=== PATIENT | female | born 1970 | race Caucasian/White ===

== ENCOUNTER → 2019-07-16 10:22 | Outpatient (CLI) | payer OTHER, SELFPAY ==
[2019-07-16 10:55] LABS: Microscopic, Urine URINE MICROSCOPIC (MICROSCOPIC)
--- NOTE | 2019-07-16 11:02 | US_ITS ---
PROCEDURE: US TRANSVAGINAL CLINICAL INDICATION: ABD PAIN Right lower quadrant pain COMPARISON: No exams were available for comparison FINDINGS: UTERUS: 8.6 x 4.7 x 5.7 cm with a combined endometrial thickness of 3 mm. There is a small area of decreased echogenicity along the fundus posteriorly at 1.1 x 0.7 cm and could be due to small fibroid. LEFT OVARY: 4 x 1.4 cm. Blood flow noted. Small follicles. RIGHT OVARY: 3.5 x 1.7 cm containing small follicles the largest at 16 mm. Blood flow noted. Trace amount of cul-de-sac fluid. IMPRESSION: Bulky somewhat heterogeneous uterus with possible fibroid involvement. Small amount of fluid in the cul-de-sac Dictated by: William Chawla MD 07/16/2019 18:22 Electronically signed by William Chawla MD in [place] 07/16/2019 18:22
[2019-07-16 11:06] LABS: Basophils # 0.1 K/mm3 (0-0.2); Basophils % 0.9 % (0.1-2.0); Eosinophils # 0.2 K/mm3 (0.0-0.4); Eosinophils % 3.6 % (0.1-12.0); Hematocrit 43.2 % (37.0-47.0); Hemoglobin 14.7 g/dL (12.2-16.2); Lymphocytes # 1.8 K/mm3 (0.7-4.5); Lymphocytes % 28.8 % (10-50); Mean Corpuscular Volume 82.5 fl (81-99); Mean Platelet Volume 9.1 fl (7.4-10.4); Monocytes # 0.3 K/mm3 (0.1-1.0); Monocytes % 4.1 % (1.7-9.3); Neutrophils % 62.5 % (37.0-80.0); Platelet Count 210 K/mm3 (142-424); Red Blood Count 5.24 M/mm3 (4.20-5.40); Red Cell Distribution Width 13.4 % (11.5-17.5); White Blood Count 6.4 K/mm3 (4.8-10.8)
[2019-07-16 11:29] LABS: Appearance,Urine CLEAR (Clear); Bilirubin,Urine Negative (Negative); Blood, Urine Negative (Negative); Color,Urine YELLOW (Yellow); Glucose,Urine (UA) Negative (Negative); Ketones,Urine Negative (Negative); Leukocyte Esterase,Urine Negative (Negative); Nitrate,Urine Negative (Negative); PH,Urine 5.5 (5.0-8.5); Protein,Urine Negative (Negative); Urobilinogen,Urine 0.2 EU/dl (0.2)
[2019-07-16 11:41] LABS: RBC,Urine Occasional #/hpf (0-3); WBC,Urine Occasional #/hpf (0-3)
[2019-07-16 11:42] LABS: Bacteria,Urine Trace /lpf
== END ==
PROVIDERS: PCP Emergency Medicine; Visit Provider Emergency Medicine
DX: R10.9 Unspecified abdominal pain (principal)
CPT/HCPCS: 36415; 76830; 81001; 85025

== ENCOUNTER 2021-11-16 18:09 | Emergency (ER) | payer SELFPAY ==
[2021-11-16 18:11] VITALS: BP 123/77; PULSE 73; RESP 19; TEMP 37; O2SAT 99; BMI 23.8
[2021-11-16 18:34] LABS: Basophils # 0.1 K/mm3 (0-0.2); Basophils % 0.6 % (0.1-2.0); Eosinophils # 0.2 K/mm3 (0.0-0.4); Eosinophils % 1.3 % (0.1-12.0); Hematocrit 46.1 % (37.0-47.0); Hemoglobin 15.5 g/dL (12.2-16.2); Lymphocytes # 0.6 K/mm3 (0.7-4.5); Lymphocytes % 5.6 % (10-50); Mean Corpuscular HGB Conc 33.5 g/dL (31.8-35.4); Mean Corpuscular Hemoglobin 26.9 pg (27.0-31.2); Mean Corpuscular Volume 80.3 fl (81-99); Mean Platelet Volume 8.7 fl (7.4-10.4); Monocytes # 0.4 K/mm3 (0.1-1.0); Monocytes % 3.4 % (1.7-9.3); Neutrophils # 10.1 K/mm3 (1.8-7.8); Platelet Count 167 K/mm3 (142-424); Red Blood Count 5.74 M/mm3 (4.20-5.40); Red Cell Distribution Width 14.3 % (11.5-17.5); White Blood Count 11.4 K/mm3 (4.8-10.8)
[2021-11-16 18:35] LABS: MANUAL DIFFERENTIAL MANUAL DIFFERENTIAL (MANUAL DIFF)
[2021-11-16 18:42] LABS: Alanine Aminotransferase 25 U/L (12-78); Albumin Level 4.1 g/dl (3.5-5.0); Albumin/Globulin Ratio 1.5 (1.1-1.8); Alkaline Phosphatase 55 U/L (38-126); Anion Gap 9.2 mEq/L (5-15); Aspartate Amino Transferase 39 U/L (14-36); Blood Urea Nitrogen 15 mg/dl (7-17); Calcium 8.1 mg/dl (8.4-10.2); Carbon Dioxide 23 mmol/L (22.0-30.0); Chloride 106 mmol/L (98-107); Creatinine Clearance Estimated 104 mL/min (50-200); Estimated Glomerular Filt Rate 106 ml/min (>60); GFR (African American) 128 ML/MIN (>60); Globulin 2.8 g/dL (1.3-3.2); Glucose 137 mg/dl (74-100); Potassium 3.2 mmoL/L (3.5-5.1); Sodium 135 mmol/L (136-145); Total Protein,Serum 6.9 g/dl (6.3-8.2)
[2021-11-16 18:42] LABS: Microscopic, Urine URINE MICROSCOPIC (MICROSCOPIC)
--- NOTE | 2021-11-16 18:44 | CT_ITS ---
PROCEDURE INFORMATION: Exam: CT Abdomen And Pelvis With Contrast Exam date and time: 11/16/2021 7:24 PM Age: 51 years old Clinical indication: Abdominal pain; Epigastric; Additional info: Abdominal pain. Epigastric pain since last night with vomiting. TECHNIQUE: Imaging protocol: Computed tomography of the abdomen and pelvis with contrast. Radiation optimization: All CT scans at this facility use at least one of these dose optimization techniques: automated exposure control; mA and/or kV adjustment per patient size (includes targeted exams where dose is matched to clinical indication); or iterative reconstruction. Contrast material: ISOVUE; Contrast volume: 75 ml; Contrast route: IV; COMPARISON: US TRANSVAGINAL 07/16/2019 11:19 AM FINDINGS: Liver: Normal. No mass. Gallbladder and bile ducts: Gallbladder is distended. Pancreas: Normal. No ductal dilation. Spleen: Normal. No splenomegaly. Adrenal glands: Normal. No mass. Kidneys and ureters: Normal. No hydronephrosis. Stomach and bowel: Significant bowel wall thickening of portions of the small bowel and colon. Small amount of free fluid in the pelvis could be related to bowel pathology or could be physiologic. Appendix: No evidence of appendicitis. Intraperitoneal space: Unremarkable. No free air. No significant fluid collection. Vasculature: Unremarkable. No abdominal aortic aneurysm. Lymph nodes: Unremarkable. No enlarged lymph nodes. Urinary bladder: Unremarkable as visualized. Reproductive: 3.3 cm left ovarian cystic lesion is most likely a simple cyst. Bones/joints: Unremarkable. No acute fracture. Soft tissues: Tiny fat containing umbilical hernia. IMPRESSION: Enterocolitis.
[2021-11-16 18:47] LABS: Appearance,Urine CLEAR (Clear); Bilirubin,Urine Negative (Negative); Blood, Urine 3+ (Negative); Color,Urine YELLOW (Yellow); Glucose,Urine (UA) TRACE (Negative); Ketones,Urine Negative (Negative); Leukocyte Esterase,Urine Negative (Negative); Nitrate,Urine Negative (Negative); Protein,Urine Negative (Negative); Specific Gravity, Urine 1.015 (1.005-1.030); Urobilinogen,Urine 0.2 EU/dl (0.2)
[2021-11-16 18:49] LABS: Urine Pregnancy, HCG Qual. Negative (Negative)
--- NOTE | 2021-11-16 18:50 | HMH.EDABDPAI ---
ED Disposition Clinical Impression: Gastritis Qualifiers: Gastritis type: unspecified gastritis Chronicity: acute Gastritis bleeding: without bleeding Qualified Code(s): K29.00 - Acute gastritis without bleeding Disposition: Home, Self-Care Condition on Discharge: Fair Instructions: DI for Acute Abdominal Pain Additional Instructions: Avoid acidic foods until your pain resolves. Please follow up with your primary care physician. Return to the emergency department for any new or concerning symptoms. Prescriptions: Sucralfate [Carafate] 1 gm PO BID #100 ml Transmission Status: Received by [id number] Multivitamin 1 each PO DAILY #30 tab Transmission Status: [facility] Famotidine [Pepcid 20mg Tablet] 20 mg PO DAILY 30 Days #30 tab Transmission Status: [facility] Ondansetron [Zofran 4mg ODT] 4 mg PO BIDP PRN #10 tab PRN Reason: Nausea Transmission Status: [id number] Referrals: Evon Ohara [Primary Care Provider] - - Critical Care Critical Care Time: No Attestation: On 11/16/21, the high probability of a clinically significant, sudden or life threatening deterioration of the following system(s) required my full and direct attention, intervention and personal management. The time I documented below is in addition to time spent performing reported procedures but includes the following listed in this critical care notation. Medical Decision Making - Medical Records Medical records reviewed: Yes: I reviewed the patient's medical records. - Yadiel Inquiry Pt receiving controlled substance: No Vital Signs: 11/16/21 18:11 Temperature 98.6 F Temperature Source Oral Pulse Rate [Right Radial] 73 Respiratory Rate 19 Blood Pressure [Right Arm] 123/77 Blood Pressure Mean [Right Arm] 92 Blood Pressure Source [Right Arm] Automatic Cuff Blood Pressure Position [Right Arm] Sitting 02 Sat by Pulse Oximetry 99 Oxygen Delivery Method Room Air - Lab Data Lab results reviewed: Yes: I reviewed the patient's lab results. Lab Results 11/16/21 18:20: WBC 11.4 H, RBC 5.74 H, Hgb 15.5, Hct 46.1, MCV 80.3 L, MCH 26.9 L, MCHC 33.5, RDW 14.3, Plt Count 167, MPV 8.7, Neut % (Auto) 89.0 H, Lymph % (Auto) 5.6 L, [place] % (Auto) 3.4, Eos % (Auto) 1.3, Baso % (Auto) 0.6, Neut # (Auto) 10.1 H, Lymph # (Auto) 0.6 L, [place] # (Auto) 0.4, Eos # (Auto) 0.2, Baso # (Auto) 0.1, Total Counted 100, Neutrophils % (Manual) 86 H, Band Neutrophils % 1.0, Lymphocytes % (Manual) 8 L, Atypical Lymphs % 2.0, Monocytes % (Manual) 3, Platelet Estimate Normal, Hypochromasia 1+ 11/16/21 18:20: Sodium 135 L, Potassium 3.2 L, Chloride 106, Carbon Dioxide 23, Anion Gap 9.2, BUN 15, Creatinine 0.60, Estimated Creat Clear 104, Estimated GFR 106, Est GFR ( Amer) 128, Glucose 137 H, Calcium 8.1 L, Total Bilirubin 1.0, AST 39 H, ALT 25, Alkaline Phosphatase 55, Total Protein 6.9, Albumin 4.1, Globulin 2.8, Albumin/Globulin Ratio 1.5 11/16/21 18:35: Urine Color Yellow, Urine Appearance Clear, Urine pH 6.0, Ur Specific Perry 1.015, Urine Protein Negative, Urine Glucose (UA) Trace, Urine Ketones Negative, Urine Blood 3+, Urine Nitrate Negative, Urine Bilirubin Negative, Urine Urobilinogen 0.2, Ur Leukocyte Esterase Negative, Urine RBC 10-20, Urine WBC 3-5, Ur Squamous Epith Cells 3-5, Urine Bacteria None 11/16/21 18:35: Urine HCG, Qual Negative Result diagrams: 11/16/21 18:20 11/16/21 18:20 Orders (Tests/Meds): ED MEDICATIONS Generic Name Dose Route Start Last Admin Trade Name Freq PRN Reason Stop Dose Admin Sodium Chloride 10 ml 11/16/21 18:26 Sodium Chloride 0.9% 10ml Flush Syringe IV 12/16/21 18:25 NEEDED PRN Maintain IV Site Discontinued Medications Generic Name Dose Route Start Last Admin Trade Name Freq PRN Reason Stop Dose Admin Belladonna Alkaloids 60 ml 11/16/21 18:44 11/16/21 18:48 Gi Cocktail 60ml Udc PO 11/16/21 18:45 60 ml O
[2021-11-16 19:06] LABS: Hypochromasia 1+; Lymphocytes % 8 % (10-50); Monocytes % 3 % (2-9); Neutrophils % 86 % (42-76); Platelet Estimate Normal; Total Cells Counted 100
[2021-11-16 21:08] VITALS: BP 123/77; PULSE 71; RESP 12; TEMP 37.1; O2SAT 98
== END 2021-11-16 21:12 | disposition home or self-care (01) ==
PROVIDERS: Emergency Provider Emergency Medicine; PCP Family Medicine
DX: K29.00 Acute gastritis without bleeding (principal)
CPT/HCPCS: 74177; 80053; 81001; 81025; 85007; 85025; 96374; 99284; J2405; Q9967

== ENCOUNTER 2024-04-06 13:23 | Emergency (ER) | payer SELFPAY ==
[2024-04-06 13:25] VITALS: BP 154/80; PULSE 83; RESP 16; TEMP 36.9; O2SAT 95; BMI 29.2
--- NOTE | 2024-04-06 14:05 | PC.NURSE ---
DR BURKETT AT BEDSIDE
--- NOTE | 2024-04-06 14:07 | CT_ITS ---
PROCEDURE INFORMATION: Exam: CT Abdomen And Pelvis With Contrast Exam date and time: 04/06/2024 2:39 PM Age: 53 years old Clinical indication: Abdominal pain; Epigastric; Additional info: Epigastric abd pain TECHNIQUE: Imaging protocol: Computed tomography of the abdomen and pelvis with contrast. Radiation optimization: All CT scans at this facility use at least one of these dose optimization techniques: automated exposure control; mA and/or kV adjustment per patient size (includes targeted exams where dose is matched to clinical indication); or iterative reconstruction. Contrast material: ISOVUE; Contrast volume: 75 ml; Contrast route: IV; COMPARISON: CT ABDOMEN PELVIS W CON 11/16/2021 7:24 PM FINDINGS: Liver: 12 mm hyperdense blush in the right lobe of the liver (series 3, image 51. It was not clearly identified in 2021.. Gallbladder and biliary ducts: Normal. No calcified stones. No ductal dilation. Pancreas: Normal. No ductal dilation. Spleen: Normal. No splenomegaly. Adrenal glands: Normal. No mass. Kidneys and ureters: There is no evidence of renal or ureteral calcifications. Stomach and bowel: Unremarkable. No obstruction. No mucosal thickening. Appendix: Normal appendix Intraperitoneal space: Unremarkable. No free air. No significant fluid collection. Vasculature: Unremarkable. No abdominal aortic aneurysm. Lymph nodes: Unremarkable. No enlarged lymph nodes. Urinary bladder: Unremarkable as visualized. Reproductive: Unremarkable as visualized. Bones/joints: Unremarkable. No acute fracture. Soft tissues: Unremarkable. IMPRESSION: 12 mm hyperdense blush in the right lobe of the liver (series 3, image 51. It was not clearly identified in 2021.. Recommend liver MRI if clinically indicated
--- NOTE | 2024-04-06 14:09 | HMH.EDGENADL ---
Discharge Plan Disposition Patient Disposition: Home, Self-Care Condition: Good Prescriptions Prescriptions: No Action multivitamin 1 EACH tablet 1 each PO DAILY Qty: 30 0RF ondansetron 4 MG tablet,disintegrating 4 mg PO BIDP PRN (Reason: Nausea) Qty: 10 0RF sucralfate 1 GM/10 ML suspension 1 gm PO BID Qty: 100 0RF famotidine 20 MG tablet 20 mg PO DAILY 30 Days Qty: 30 0RF Referrals Follow up/Referrals: Miriam Rodriguez MD [Physician] - See instructions Evon Ohara [Primary Care Provider] - See instructions Activity Restrictions/Add. Instructions Additional Instructions/Restrictions: You were evaluated in the emergency department today. Your blood sugar is mildly elevated, and your liver enzymes are also mildly elevated. You also have a very small lesion on your liver, for which we recommend outpatient MRI for further assessment. Your primary care provider can help facilitate this, but we are also providing you with information for gastroenterology, Dr. Rodriguez. Please follow-up with primary care doctor regarding your elevated blood sugar and some of your liver function tests. Return to the emergency department for new or worsening symptoms. Clinical Impressions Clinical Impression: Epigastric abdominal pain, Hyperglycemia, High transaminase levels, Lesion of liver Instructions Patient Instructions: DI for Acute Abdominal Pain Print Language Print Language: Malawian Discharge ED Provider: Jacinta Humphreys General Adult HPI <J Kodak oRth MD - Last Filed: 04/06/24 15:12> General Chief complaint: Abdominal Pain Stated complaint: abd pain Time Seen by Provider: 04/06/24 14:04 Mode of Arrival: Ambulatory Source of Information: Patient Limitations: Language Barrier Description of Symptoms (Recalled from ER Triage Doc. by RN): Patient reports upper abdomen pain that started yesterday. Denies N/V/D. History of Present Illness HPI narrative: Patient is a 53-year-old female who presents today with epigastric abdominal pain. There is a language barrier and her son who is with her is primarily interpreting for the patient. They did not ask for request a management development specialist. She states that for the last several days that she has had epigastric abdominal discomfort that initially started off mild but now is severe. No chest pain exertional symptoms nausea vomiting diarrhea blood in her stool no history of any significant abdominal surgeries. No postprandial aspect of this. Related Data Previous Rx's ?Medication ?Instructions ?Recorded famotidine 20 mg tablet 20 mg PO DAILY 30 days #30 tabs 11/16/21 multivitamin 1 each PO DAILY #30 tabs 11/16/21 ondansetron 4 mg disintegrating 4 mg PO BIDP PRN Nausea #10 tabs 11/16/21 tablet sucralfate 100 mg/mL oral 1 gm PO BID #100 mL 11/16/21 suspension Allergies Allergy/AdvReac Type Severity Reaction Status Date / Time No Known Allergies Allergy Verified 11/16/21 18:25 PFS <Jaylin Roth MD - Last Filed: 04/06/24 15:12> [facility] Disclaimer: The information contained in this section may have been updated after the patient was seen, as this information can be updated by other users. Social History (Updated 04/06/24 @ 15:12 by Jaylin Roth MD) Smoking Status: Never smoker alcohol intake: never current occupational status: other Travel in the last 8 weeks: None <Jaylin Roth MD - Last Filed: 04/06/24 15:12> ROS Obtained: Yes All systems reviewed & no additional complaints except as documented Physical Exam <Jaylin Roth MD - Last Filed: 04/06/24 15:12> General General appearance: alert and in no apparent distress Respiratory Respiratory exam: Present normal lung sounds bilaterally Cardiovascular Cardiovascular exam: Present regular rate Abdominal Exam Abdominal exam: Present soft and tenderness (Epigastric tenderness to palpation); Absent distention Neurological Exam Neurological exam: Present alert and oriented X3 Medical Decision Making <Jaylin Roth MD - Last Filed: 04/06/24 15:12> Yadiel Inquiry Pt receiving controlled substance: No Vital Signs: 04/06/24 13:25 04/06/24 16:03 Temperature 98.5 F 98.5 F Temperature Source Oral Oral Pulse Rate 85 Pulse Rate [Radial] 83 Respiratory Rate 16 16 Blood Pressure 150/72 H Blood Pressure [Right Arm] 154/80 H Blood Pressure Mean [Right Arm] 104 Blood Pressure Source Automatic Cuff Blood Pressure Source [Right Arm] Automatic Cuff Blood Pressure Position Sitting Blood Pressure Position [Right Arm] Sitting 02 Sat by Pulse Oximetry 95 Oxygen Delivery Method Room Air Room Air Lab Data Lab results reviewed: Yes I reviewed the patient's lab results. Lab Results 04/06/24 13:39: WBC 8.2, RBC 4.97, Hgb 13.4, Hct 40.9, MCV 82.2, MCH 26.9 L, MCHC 32.8, RDW 14.7, Plt Count 174, MPV 9.3, Neut % (Auto) 80.0, Lymph % (Auto) 13.2, [place] % (Auto) 3.9, Eos % (Auto) 2.6, Baso % (Auto) 0.4, Neut # (Auto) 6.6, Lymph # (Auto) 1.1, [place] # (Auto) 0.3, Eos # (Auto) 0.2, Baso # (Auto) 0.0, Sodium 137, Potassium 3.5, Chloride 105, Carbon Dioxide 26, Anion Gap 9.5, BUN 15, Creatinine 0.80, Estimated Creat Clear 88, Estimated GFR 75, Est GFR ( Amer) 91, Glucose 287 H, Calcium 8.8, Total Bilirubin 0.8, AST 43 H, ALT 47, Alkaline Phosphatase 148 H, Troponin I < 0.01, Total Protein 6.5, Albumin 3.9, Globulin 2.6, Albumin/Globulin Ratio 1.5, Lipase 104 04/06/24 13:39 04/06/24 13:39 Orders (Tests/Meds): ED MEDICATIONS Discontinued Medications Generic Name Dose Route Start Last Admin Trade Name Freq PRN Reason Stop Dose Admin Belladonna Alkaloids 60 ml 04/06/24 14:07 04/06/24 14:22 Belladonna Alkaloids 60 Ml Ml PO 04/06/24 14:08 60 ml ONCE ONE Administration Lactated Ringer's 1,000 mls @ 999 mls/hr 04/06/24 14:15 04/06/24 14:22 Lactated Ringer's 1000 Ml Bag IV 04/06/24 15:15 999 mls/hr .Q1H1M KANDIS Administration Iopamidol 75 ml 04/06/24 14:43 04/06/24 14:44 Iopamidol-370 (76%);100ml Bottle IV 04/06/24 14:44 75 ml ONCE ONE Administration Morphine Sulfate 4 mg 04/06/24 14:07 04/06/24 14:23 Morphine 4mg/Ml Syringe IV 04/06/24 14:08 4 mg ONCE ONE Administration Ondansetron HCl 4 mg 04/06/24 14:07 04/06/24 14:22 Ondansetron 4mg/2ml Vial IV 04/06/24 14:08 4 mg ONCE ONE Administration Sodium Chloride 10 ml 04/06/24 14:43 04/06/24 14:44 Sodium Chloride 0.9% 10ml Syr (Rad Only) IV 04/06/24 14:44 10 ml ONCE ONE Administration ORDERS Category Date Time Status CT abdomen pelvis w con Stat Cat Scan 04/06/24 14:07 Completed CBC w/Auto Diff [Complete Blood Count Auto Diff] Stat Lab 04/06/24 13:39 Completed CMP [Comprehensive Metabolic Panel] Stat Lab 04/06/24 13:39 Completed Lipase Stat Lab 04/06/24 13:39 Completed Trop I [Troponin I] Stat Lab 04/06/24 13:39 Completed Medical Decision Narrative: Patient is a 53-year-old female presents today with epigastric abdominal pain. There is somewhat of a language barrier however she and her son at the bedside feel comfortable with interpreting through him. Given the fact that there is some bit of a barrier we will be conservative with our workup. She has some significant abdominal tenderness in epigastric fashion. Unlikely to be acute coronary syndrome but is a possibility. Will get a CT scan of the abdomen pelvis to further evaluate this. Other things in the differential would include hepatobiliary disease, pancreatitis, gastritis etc. GI cocktail pain medicine nausea medicine and IV fluids have been administered and will reassess. Reassessment 311 patient's labs have returned alk phos AST and glucose all elevated. Glucose is 287 she does not have a history of diabetes on further questioning. CT scan has been performed and we are awaiting the results. Care has been transitioned to Dr. Jacinta Humphreys for further evaluation and management. I did discuss with the patient and her son that if everything is unremarkable that she abdomen and will need to follow-up for these abnormal blood test specifically to work up possible liver disease and/or diabetes. <Jacinta Humphreys, DO - Last Filed: 04/06/24 16:08> Vital Signs: 04/06/24 13:25 04/06/24 16:03 Temperature 98.5 F 98.5 F Temperature Source Oral Oral Pulse Rate 85 Pulse Rate [Radial] 83 Respiratory Rate 16 16 Blood Pressure 150/72 H Blood Pressure [Right Arm] 154/80 H Blood Pressure Mean [Right Arm] 104 Blood Pressure Source Automatic Cuff Blood Pressure Source [Right Arm] Automatic Cuff Blood Pressure Position Sitting Blood Pressure Position [Right Arm] Sitting 02 Sat by Pulse Oximetry 95 Oxygen Delivery Method Room Air Room Air Lab Data Lab Results 04/06/24 13:39: WBC 8.2, RBC 4.97, Hgb 13.4, Hct 40.9, MCV 82.2, MCH 26.9 L, MCHC 32.8, RDW 14.7, Plt Count 174, MPV 9.3, Neut % (Auto) 80.0, Lymph % (Auto) 13.2, [place] % (Auto) 3.9, Eos % (Auto) 2.6, Baso % (Auto) 0.4, Neut # (Auto) 6.6, Lymph # (Auto) 1.1, [place] # (Auto) 0.3, Eos # (Auto) 0.2, Baso # (Auto) 0.0, Sodium 137, Potassium 3.5, Chloride 105, Carbon Dioxide 26, Anion Gap 9.5, BUN 15, Creatinine 0.80, Estimated Creat Clear 88, Estimated GFR 75, Est GFR ( Amer) 91, Glucose 287 H, Calcium 8.8, Total Bilirubin 0.8, AST 43 H, ALT 47, Alkaline Phosphatase 148 H, Troponin I < 0.01, Total Protein 6.5, Albumin 3.9, Globulin 2.6, Albumin/Globulin Ratio 1.5, Lipase 104 Orders (Tests/Meds): ED MEDICATIONS Discontinued Medications Generic Name Dose Route Start Last Admin Trade Name Freq PRN Reason Stop Dose Admin Belladonna Alkaloids 60 ml 04/06/24 14:07 04/06/24 14:22 Belladonna Alkaloids 60 Ml Ml PO 04/06/24 14:08 60 ml ONCE ONE Administration Lactated Ringer's 1,000 mls @ 999 mls/hr 04/06/24 14:15 04/06/24 14:22 Lactated Ringer's 1000 Ml Bag IV 04/06/24 15:15 999 mls/hr .Q1H1M KANDIS Administration Iopamidol 75 ml 04/06/24 14:43 04/06/24 14:44 Iopamidol-370 (76%);100ml Bottle IV 04/06/24 14:44 75 ml ONCE ONE Administration Morphine Sulfate 4 mg 04/06/24 14:07 04/06/24 14:23 Morphine 4mg/Ml Syringe IV 04/06/24 14:08 4 mg ONCE ONE Administration Ondansetron HCl 4 mg 04/06/24 14:07 04/06/24 14:22 Ondansetron 4mg/2ml Vial IV 04/06/24 14:08 4 mg ONCE ONE Administration Sodium Chloride 10 ml 04/06/24 14:43 04/06/24 14:44 Sodium Chloride 0.9% 10ml Syr (Rad Only) IV 04/06/24 14:44 10 ml ONCE ONE Administration ORDERS Category Date Time Status CT abdomen pelvis w con Stat Cat Scan 04/06/24 14:07 Completed CBC w/Auto Diff [Complete Blood Count Auto Diff] Stat Lab 04/06/24 13:39 Completed CMP [Comprehensive Metabolic Panel] Stat Lab 04/06/24 13:39 Completed Lipase Stat Lab 04/06/24 13:39 Completed Trop I [Troponin I] Stat Lab 04/06/24 13:39 Completed Medical Decision Narrative: Patient is a 53-year-old female presents today with epigastric abdominal pain. There is somewhat of a language barrier however she and her son at the bedside feel comfortable with interpreting through him. Given the fact that there is some bit of a barrier we will be conservative with our workup. She has some significant abdominal tenderness in epigastric fashion. Unlikely to be acute coronary syndrome but is a possibility. Will get a CT scan of the abdomen pelvis to further evaluate this. Other things in the differential would include hepatobiliary disease, pancreatitis, gastritis etc. GI cocktail pain medicine nausea medicine and IV fluids have been administered and will reassess. Reassessment 311 patient's labs have returned alk phos AST and glucose all elevated. Glucose is 287 she does not have a history of diabetes on further questioning. CT scan has been performed and we are awaiting the results. Care has been transitioned to Dr. Jacinta Humphreys for further evaluation and management. I did discuss with the patient and her son that if everything is unremarkable that she abdomen and will need to follow-up for these abnormal blood test specifically to work up possible liver disease and/or diabetes. Petr, DO: On my assessment of the patient, she is resting comfortably and states that she is feeling better without significant pain at this time. Labs demonstrated mild transaminitis as well as elevated glucose. CT scan concerning for small area of contrast blush in the liver, for which radiology recommended follow-up MRI. I feel the patient would benefit from this as an outpatient. I did notify the patient and her son of this. Ultimately, since he is feeling better and labs are otherwise reassuring, I feel she is appropriate for discharge home with plan for close outpatient follow-up with both her primary care provider as well as GI. I did give her information for potential follow-up with GI. Strict precautions were given should her symptoms worsen, and the patient was discharged after all questions were answered Critical Care <Jaylin Roth MD - Last Filed: 04/06/24 15:12> Critical Care Time Critical Care Time: No
[2024-04-06 14:14] LABS: Basophils % 0.4 % (0.1-2.0); Eosinophils # 0.2 K/mm3 (0.0-0.4); Eosinophils % 2.6 % (0.1-12.0); Hematocrit 40.9 % (37.0-47.0); Hemoglobin 13.4 g/dL (12.2-16.2); Lymphocytes # 1.1 K/mm3 (0.7-4.5); Lymphocytes % 13.2 % (10-50); Mean Corpuscular HGB Conc 32.8 g/dL (31.8-35.4); Mean Corpuscular Hemoglobin 26.9 pg (27.0-31.2); Mean Corpuscular Volume 82.2 fl (81-99); Mean Platelet Volume 9.3 fl (7.4-10.4); Monocytes # 0.3 K/mm3 (0.1-1.0); Monocytes % 3.9 % (1.7-9.3); Neutrophils # 6.6 K/mm3 (1.8-7.8); Platelet Count 174 K/mm3 (142-424); Red Blood Count 4.97 M/mm3 (4.20-5.40); Red Cell Distribution Width 14.7 % (11.5-17.5); White Blood Count 8.2 K/mm3 (4.8-10.8)
[2024-04-06 14:17] LABS: Albumin Level 3.9 g/dl (3.5-5.0); Chloride 105 mmol/L (98-107); Potassium 3.5 mmoL/L (3.5-5.1); Sodium 137 mmol/L (136-145)
[2024-04-06 14:19] LABS: Alanine Aminotransferase 47 U/L (12-78); Aspartate Amino Transferase 43 U/L (14-36); Blood Urea Nitrogen 15 mg/dl (7-17); Creatinine Clearance Estimated 88 mL/min (50-200); Estimated Glomerular Filt Rate 75 ml/min (>60); GFR (African American) 91 ML/MIN (>60)
[2024-04-06 14:20] LABS: Albumin/Globulin Ratio 1.5 (1.1-1.8); Alkaline Phosphatase 148 U/L (38-126); Anion Gap 9.5 mEq/L (5-15); Bilirubin,Total 0.8 mg/dl (0.2-1.3); Calcium 8.8 mg/dl (8.4-10.2); Carbon Dioxide 26 mmol/L (22.0-30.0); Globulin 2.6 g/dL (1.3-3.2); Glucose 287 mg/dl (74-100); Lipase 104 U/L (23-300); Total Protein,Serum 6.5 g/dl (6.3-8.2)
[2024-04-06] MEDS: ONDANSETRON 4MG/2ML VIAL 4 MG IV (14:22)
[2024-04-06] MEDS: LACTATED RINGERS 1000ML 1,000 ML 999 ML IV (14:22)
[2024-04-06] MEDS: BELLADONNA ALKALOIDS 60 ML ML PO (14:22)
[2024-04-06] MEDS: MORPHINE 4MG/ML SYRINGE 4 MG IV (14:23)
--- NOTE | 2024-04-06 14:34 | PC.NURSE ---
PT TO CT
[2024-04-06] MEDS: IOPAMIDOL-370 (76%);100ML BOTTLE 75 ML IV (14:44)
[2024-04-06] MEDS: SODIUM CHLORIDE 0.9% 10ML SYR (RAD ONLY) 10 ML IV (14:44)
[2024-04-06 15:12] LABS: Troponin I < 0.01 ng/ml (0.00-0.034)
--- NOTE | 2024-04-06 15:52 | PC.NURSE ---
DR HURD AT BEDSIDE
[2024-04-06 16:03] VITALS: BP 150/72; PULSE 85; RESP 16; TEMP 36.9; O2SAT 98
== END 2024-04-06 16:04 | disposition home or self-care (01) ==
PROVIDERS: Student in an Organized Health Care Education/Training Program; Emergency Provider Emergency Medicine; PCP Family Medicine
DX: R10.13 Epigastric pain (principal); R74.01 Elevation of levels of liver transaminase levels; R73.9 Hyperglycemia, unspecified; K76.89 Other specified diseases of liver
CPT/HCPCS: 74177; 80053; 83690; 84484; 85025; 96361; 96374; 96375; 99285; J2270; J2405; J7120; Q9967